=== PATIENT | male | born 1955 | race Caucasian/White ===

== ENCOUNTER 2017-12-31 14:41 | Emergency (ER) | payer OTHER, BC ==
[2017-12-31] MEDS: KETOROLAC 30 MG INJ IM (15:39)
[2017-12-31] MEDS: HYDROCODONE/APAP (5/325) TAB PO (15:39)
== END 2017-12-31 17:42 | disposition home or self-care (01) ==
LOC: FTE 14:41
DX: M77.9 Enthesopathy, unspecified (principal)
CPT/HCPCS: 29125; 73130-LT; 93005; 96372; 99284-25